=== PATIENT | female | born 2000 | race Native Hawaiian/Other Pacific Islander ===

== ENCOUNTER 2022-05-12 17:18 | Emergency (ER) | payer OTHER ==
[~2022-05-12] VITALS: Ht 165.1 cm; Wt 98.4 kg
[2022-05-12 20:05] VITALS: BP 110/70; TEMP 98.2
== END 2022-05-12 20:05 | disposition home or self-care (01) ==
LOC: ED 17:18
DX: R10.32 Left lower quadrant pain (principal)
CPT/HCPCS: 80307; 81002; 81025; 96372; 99283; J1885